=== PATIENT | male | born 1970 | race Hispanic/Latino ===

== ENCOUNTER 2024-11-05 14:32 | Emergency (ER) | payer SELFPAY ==
[2024-11-05 14:54] LABS: #Basophils 0.05 10x3/uL (0.0-0.2); #Eosinophils 0.25 10x3/uL (0.0-0.7); #Monocytes 0.68 10x3/uL (0.11-0.59); #Neutrophils 5.36 10x3/uL (1.40-6.50); %Basophils 0.6 % (0.0-1.0); %Eosinophils 3.1 % (0.0-10.0); %Lymphocytes 21.3 % (21.0-51.0); %Monocytes 8.4 % (0.0-10.0); %Neutrophils 66.2 % (42.0-75.0); Hematocrit 40.0 % (42.0-52.0); Hemoglobin 13.7 g/dL (14.0-18.0); Mean Corpuscular Hemoglobin 29.3 pg (27.0-31.0); Mean Corpuscular Volume 85.5 fL (78.0-98.0); Platelet Count 243 10x3/uL (130-400); Red Blood Cell (RBC) Count 4.68 mill/uL (4.70-6.10); White Blood Cell (WBC) Count 8.09 10x3/uL (4.8-10.8)
[2024-11-05 15:13] LABS: ALT (SGPT) 11 U/L (Less than 45); AST (SGOT) 18 U/L (11-34); Albumin 4.1 g/dL (3.1-4.5); Alkaline Phosphatase 62 U/L (40-110); Anion Gap 14 mmol/L (10-20); BUN (Urea Nitrogen) 19 mg/dL (8.4-25.7); Bilirubin, Total 0.7 mg/dL (0.3-1.2); Calc. Creatinine Clearance 0 mL/min (70-130); Calcium 9.6 mg/dL (7.8-10.44); Carbon Dioxide 24 mmol/L (22-29); Chloride 107 mmol/L (98-107); Globulin 3.4 g/dL (2.4-3.5); Glucose 131 mg/dL (70-105); Lipase 14 U/L (8-78); Potassium 3.7 mmol/L (3.5-5.1); Sodium 141 mmol/L (136-145)
[2024-11-05] MEDS ORDERED: Nitroglycerin 0.4 MG TAB 1 EACH ONE (15:33)
[2024-11-05] MEDS ORDERED: Ketorolac Tromethamine 30 MG (1 mL) VIAL ONE (16:36)
== END 2024-11-05 16:54 | disposition home or self-care (01) ==
LOC: ERS 14:32
DX: M25.512 Pain in left shoulder (principal); E86.0 Dehydration; I10 Essential (primary) hypertension; Z79.899 Other long term (current) drug therapy
CPT/HCPCS: 71045; 80053; 83690; 84484; 85025; 85379; 93005; 96374; J1885